=== PATIENT | male | born 1990 | race Caucasian/White ===

== ENCOUNTER 2022-07-04 08:37 | Emergency (ER) | payer MEDICAID ==
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
[2022-07-04 09:51] VITALS: BP 134/82; PULSE 75
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
[2022-07-04 10:07] VITALS: O2SAT 99
== END 2022-07-04 10:51 | disposition home or self-care (01) ==
LOC: ED 08:37
DX: T81.33XD Disruption of traumatic injury wound repair, subsequent encounter (principal); S22.43XD Multiple fractures of ribs, bilateral, subsequent encounter for fracture with routine healing; S12.591D Other nondisplaced fracture of sixth cervical vertebra, subsequent encounter for fracture with routine healing; S22.088D Other fracture of T11-T12 vertebra, subsequent encounter for fracture with routine healing; D18.09 Hemangioma of other sites; Z79.899 Other long term (current) drug therapy
CPT/HCPCS: 71250; 99283; L0172